=== PATIENT | female | born 1990 | race Caucasian/White ===

== ENCOUNTER 2017-03-04 03:10 | Emergency (ER) | payer MEDICAID ==
[~2017-03-04] VITALS: Ht 175.3 cm; Wt 173.7 kg
[~2017-03-04 03:10] MED LIST: ALBU18HF INH; CEFD300C2 PO; FERR325T20 PO; HYDR-3240 PO; HYDR12.53 PO; LEVO112T4 PO; LEVO25TA2 PO; MELO-190 PO; NYST60PO TP; ONDA-40 PO; POLY17PO5 PO; RANI150T4 PO; SIME125T10 PO; SUCR1TAB PO; TRAM50TA2 PO
[2017-03-04 03:12] VITALS: BP 164/90
[2017-03-04 03:49] LABS: HEMOGLOBIN 14.3 g/dL (11.7-16.4)
[2017-03-04] MEDS ORDERED: KETOROLAC 30 MG/1 ML IM ONE (04:00)
[2017-03-04] MEDS ORDERED: DIAZEPAM 5 MG TABLET PO ONE (04:00)
[2017-03-04 04:02] LABS: ASPARTATE AMINO TRANSFERASE 24 U/L (15-37); BLOOD UREA NITROGEN 8 mg/dL (7-18)
[2017-03-04] MEDS ORDERED: KETOROLAC 30 MG/1 ML ONE (04:05)
[2017-03-04] MEDS ORDERED: DIAZEPAM 5 MG TABLET ONE (04:05)
[2017-03-04 04:10] LABS: PATH.CAST-FLAG NOT PRESENT; SPERM-FLAG NOT PRESENT; SRC-FLAG NOT PRESENT; XTAL-FLAG NOT PRESENT; YLC-FLAG NOT PRESENT
[2017-03-04] MEDS ORDERED: LEVO150T5 PO (04:10)
== END 2017-03-04 05:05 | disposition home or self-care (01) ==
LOC: ED 04:51
DX: S39.012A Strain of muscle, fascia and tendon of lower back, initial encounter (principal); R10.11 Right upper quadrant pain; E66.01 Morbid (severe) obesity due to excess calories; E03.9 Hypothyroidism, unspecified; E66.9 Obesity, unspecified; M54.9 Dorsalgia, unspecified; G89.29 Other chronic pain; F17.200 Nicotine dependence, unspecified, uncomplicated; Y93.89 Activity, other specified; X50.9XXA Other and unspecified overexertion or strenuous movements or postures, initial encounter; Y92.89 Other specified places as the place of occurrence of the external cause; Y99.2 Volunteer activity; Z88.1 Allergy status to other antibiotic agents
CPT/HCPCS: 36415; 80053; 81001; 83690; 84703; 85025; 96372; 99284; J1885

== ENCOUNTER 2017-05-12 03:43 | Emergency (ER) | payer MEDICAID ==
[~2017-05-12] VITALS: Ht 175.3 cm; Wt 172.1 kg
[~2017-05-12 03:43] MED LIST changes: -CEFD300C2 PO; +CEFD300C37 PO; +ESCI10TA PO; +LEVO150T5 PO
[2017-05-12 03:46] VITALS: BP 139/88
== END 2017-05-12 04:18 | disposition home or self-care (01) ==
LOC: ED 04:12
DX: K08.89 Other specified disorders of teeth and supporting structures (principal); E03.9 Hypothyroidism, unspecified; F19.10 Other psychoactive substance abuse, uncomplicated; Z88.1 Allergy status to other antibiotic agents
CPT/HCPCS: 99283

== ENCOUNTER 2017-10-18 15:04 | Emergency (ER) | payer MEDICAID ==
[~2017-10-18] VITALS: Ht 175.3 cm; Wt 170.3 kg
[~2017-10-18 15:04] MED LIST changes: +FERR325T18 PO; -FERR325T20 PO; -MELO-190 PO; +MELO7.5T31 PO; -ONDA-40 PO; +ONDA8TAB15 PO
[2017-10-18 16:15] LABS: HEMATOCRIT 41.6 % (34.6-47.8); HEMOGLOBIN 14.3 g/dL (11.7-16.4); WHITE BLOOD COUNT 9.7 x10^3/uL (3.4-10)
[2017-10-18 16:27] LABS: ASPARTATE AMINO TRANSFERASE 21 U/L (15-37); BLOOD UREA NITROGEN 7 mg/dL (7-18)
[2017-10-18 17:27] VITALS: BP 125/70
== END 2017-10-18 17:29 | disposition home or self-care (01) ==
LOC: ED 17:19
DX: R10.11 Right upper quadrant pain (principal); E03.9 Hypothyroidism, unspecified
CPT/HCPCS: 36415; 80053; 81003; 83690; 84439; 84443; 84703; 85025; 99284

== ENCOUNTER 2019-05-30 15:12 | Emergency (ER) | payer MEDICAID ==
[~2019-05-30] VITALS: Ht 175.3 cm; Wt 175.0 kg
[~2019-05-30 15:12] MED LIST changes: +DULO20CA45 PO; +HYDR12.517 PO; -HYDR12.53 PO; +NITR100C56 PO; +OSEL30CA12 PO; +OSEL75CA26 PO; +PREN1TAB60 PO
--- NOTE | 2019-05-30 15:30 | NUR ---
SEND PT TO L&D WHEN DONE IN ED PER POLO RN, PT 8 1/2 MOS PREG
--- NOTE | 2019-05-30 16:03 | NUR ---
PT TO ROOM AT THIS TIME.
--- NOTE | 2019-05-30 16:14 | NUR ---
28 Y/O FEMALE PRESENTS TO ED WITH C/O SOB. "I CAN'T BREATHE. IT'S BEEN FOR ABOUT 5 DAYS. MY CAUGHT A COLD AND I GOT IT. I'M 8.5 MONTHS ." PT PLACED ON CONT PUSLE OX,NIBP. NO C/O N/V/D, TRAUMA, SYNCOPE, CP. PT VERBALIZED UNDERSTANDING REGARDING GOING TO L&D AFTER ED VISIT.
[2019-05-30] MEDS ORDERED: ALBUTEROL/IPRATROPIUM 2.5MG/0.5MG, 3 ML ONE (16:25)
[2019-05-30] MEDS ORDERED: ALBUTEROL/IPRATROPIUM 2.5MG/0.5MG, 3 ML NPPB ONE (16:30)
--- NOTE | 2019-05-30 17:03 | NUR ---
TASK RN: ERP CONCERNED REGARDING BP. PT REPORTS ELLIS X THREE DAYS. DENIES CP/SOB. VSS AND CHARTED.
[2019-05-30 17:04] VITALS: BP 122/67
--- NOTE | 2019-05-30 17:25 | NUR ---
Patient/Caregiver given discharge instructions and they have confirmed that they understand the instructions. Patient ambulatory with steady gait TO WHEELCHAIR. PT TAKEN TO L&D. PT LEFT WITH ALL PERSONAL BELONGINGS.
== END 2019-05-30 17:27 | disposition home or self-care (01) ==
LOC: ED 17:21
DX: J45.909 Unspecified asthma, uncomplicated (principal); J20.8 Acute bronchitis due to other specified organisms; F17.200 Nicotine dependence, unspecified, uncomplicated; E78.5 Hyperlipidemia, unspecified; E66.9 Obesity, unspecified; Z90.49 Acquired absence of other specified parts of digestive tract
CPT/HCPCS: 71045; 93005; 94640; 99283; J7620

== ENCOUNTER 2019-05-30 17:35 | Outpatient (CLI) | payer MEDICAID ==
[~2019-05-30] VITALS: Ht 175.3 cm; Wt 172.0 kg
[2019-05-30 18:00] VITALS: BP 147/81
[2019-05-30 18:07] LABS: BASOPHILS # (AUTO) 0.16 x10^3/uL (0-0.1); BASOPHILS % (AUTO) 1 % (0-1); EOSINOPHILS # (AUTO) 0.08 x10^3/uL (0-0.4); EOSINOPHILS % (AUTO) 1 % (1-7); LYMPHOCYTES # (AUTO) 2.16 x10^3/uL (1-3.4); LYMPHOCYTES % (AUTO) 17 % (22-44); MD NO; MEAN CORPUSCULAR HEMOGLOBIN 32.4 pg (27.0-34.8); MEAN CORPUSCULAR VOLUME 95.1 fL (80-100); MEAN PLATELET VOLUME 7.6 fL (7.4-10.4); MONOCYTES # (AUTO) 0.43 x10^3/uL (0.2-0.8); MONOCYTES % (AUTO) 3 % (2-9); NEUTROPHILS # (AUTO) 9.87 x10^3/uL (1.8-6.8); NEUTROPHILS % (AUTO) 78 % (42-75); PLATELET COUNT 310 x10^3/uL (130-400); RED CELL DISTRIBUTION WIDTH 12.7 % (9.6-15.2)
[2019-05-30 18:13] LABS: ALANINE AMINOTRANSFERASE 11 U/L (12-78); ALBUMIN 2.7 g/dL (3.4-5.0); ANION GAP 10 mmol/L (5-15); CALCIUM 9.1 mg/dL (8.5-10.1); CHLORIDE 109 mmol/L (98-107); CREATININE 0.79 mg/dL (0.55-1.02)
[2019-05-30 18:16] LABS: MICROSCOPIC NOT IND
[2019-05-30 18:17] LABS: ALKALINE PHOSPHATASE 160 U/L (45-117); BILIRUBIN, DIRECT 0.1 mg/dL (0.1-0.2); BILIRUBIN,TOTAL 0.7 mg/dL (0.2-1.0)
[2019-05-30 18:31] LABS: AMPHETAMINE SCREEN, URINE Negative (Negative); BARBITURATE SCREEN, URINE Negative (Negative); BENZODIAZEPINE SCREEN, URINE Negative (Negative); CANNABINOID SCREEN, URINE Positive (Negative); COCAINE SCREEN, URINE Negative (Negative); METHADONE SCREEN, URINE Negative (Negative); OPIATE SCREEN, URINE Negative (Negative); PROTEIN/CREATININE RATIO,URINE 151 (0-200); TOTAL PROTEIN,URINE RANDOM 27 mg/dL (0-12)
== END 2019-05-30 19:15 | disposition home or self-care (01) ==
LOC: LDOP 17:35
PROVIDERS: ATTEND Obstetrics & Gynecology
DX: Z34.93 Encounter for supervision of normal pregnancy, unspecified, third trimester (principal); Z3A.37 37 weeks gestation of pregnancy
CPT/HCPCS: 36415; 59025; 80053; 80307; 81003; 82248; 82570; 84156; 84550; 85025; 86592; 86762; 86850; 86900; 87086; 87340; 87806; 99211; G0463; G0475

== ENCOUNTER 2019-06-14 13:15 | Outpatient (CLI) | payer MEDICAID ==
[~2019-06-14] VITALS: Ht 175.3 cm; Wt 176.8 kg
[2019-06-14 13:49] VITALS: BP 134/73
[2019-06-14 14:30] LABS: AMPHETAMINE SCREEN, URINE Negative (Negative); BARBITURATE SCREEN, URINE Negative (Negative); BENZODIAZEPINE SCREEN, URINE Negative (Negative); CANNABINOID SCREEN, URINE Positive (Negative); COCAINE SCREEN, URINE Negative (Negative); METHADONE SCREEN, URINE Negative (Negative); OPIATE SCREEN, URINE Negative (Negative)
== END 2019-06-14 15:10 | disposition home or self-care (01) ==
LOC: LDOP 13:15
PROVIDERS: ATTEND Obstetrics & Gynecology
DX: Z34.93 Encounter for supervision of normal pregnancy, unspecified, third trimester (principal); Z3A.40 40 weeks gestation of pregnancy
CPT/HCPCS: 59025; 80307; 87081; 99211; G0463